=== PATIENT | female | born 2000 | race Caucasian/White ===

== ENCOUNTER 2023-12-26 20:22 | Emergency (ER) | payer BC, SELFPAY ==
[2023-12-26 20:25] VITALS: BP 140/94
--- NOTE | 2023-12-26 21:37 | EDRN ---
About 2 hours ago pt was playing basketball and another player fell on her L shoulder. Pt continued playing the game. Pt says her L shoulder hurts and she has some tingling in her L fingers. Pt did not take anything for pain or apply ice prior to
arrival in ED. Pt given ice pack.
--- NOTE | 2023-12-26 21:46 | ED.GENMED ---
History of Present Illness
General
Chief Complaint: Musculo-Skeletal Complaint
Source: patient and family (Mother and father at bedside)
Exam Limitations: none
Time Seen by Provider: 12/26/23 21:22
Nursing documentation reviewed up to this point in time: agreed with
History of Present Illness
History of Present Illness:
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 She plays for [employer]. During the game she lunged to retrieve the ball and while near lying on the floor she was struck on
her left shoulder by an opponent. She complains of immediate severe pain to her left anterior shoulder with markedly limited range of motion and intermittent paresthesia of her left hand. Left shoulder pain is much worse with attempted external
rotation and worse with abduction.
No prior history of shoulder injuries.
She denies head injury, denies headache, denies neck or back pain, denies chest pain, no cough no shortness of breath. She denies weakness.
She has not taken anything for pain.
She takes no medicines on a daily basis.
Denies risk of .
Past History
Past History
ED Past Medical History: None
ED Past Surgical History: None
Social History
Tobacco: Non-smoker
Alcohol: None
Drug: None
Personal: Single
Living: with roommate
Employment: Student ([employer])
Family History
Family History: Other (Noncontributory)
Phy Exam
Physical Exam
Physical Exam:
GENERAL: 23-year-old female appears her stated age, awake and alert, appears mildly uncomfortable related to shoulder pain. Easily communicative. Both parents are accompanying.
EYE: anicteric. The head is normocephalic, atraumatic.
NECK: Supple, nontender
ENT: oral mucosa is moist. No rhinorrhea.
CARDIAC: Regular rate and rhythm. no murmur. No chest wall tenderness.
LUNGS: Clear breath sounds bilaterally, no acute respiratory distress, no wheezes/rales/rhonchi
ABDOMEN: Soft, nondistended, without focal tenderness
NEUROLOGICAL: Alert and oriented x3, no focal neuro deficits.
SKIN: Warm and dry, normal color, skin intact. No rash.
MUSCULOSKELETAL: No C/C/E. peripheral pulses are full and equal b/l. Left shoulder has very mild soft tissue swelling as well as very mild/early ecchymosis anterior aspect of the shoulder. Moderate tenderness anterior aspect of the shoulder.
There is no tenderness to the the AC joint. No gross deformity. Exquisite tenderness to the left anterior shoulder with external rotation of the shoulder, moderate pain with abduction greater than 90 degrees. No crepitus. No tenderness to the
upper arm nor elbow nor forearm. Hand grasps are full and equal bilaterally. Radial pulses are full and equal. Sensation is grossly intact. Motor strength intact.
PSYCH: Normal and appropriate interaction.
Course
Orders/Labs/Results
Orders:
Orders
12/26/23 20:28
CR Shoulder, Trauma - Left Urgent
Comment:
Reason For Exam: Trauma
12/26/23 21:44
Ketorolac [Toradol] 60 mg IM NOW STA
12/26/23 21:45
Shoulder Immobilizer Left- Tx ONCE
Vital Signs
Initial and Last Documented VS:
Initial Vital Signs
Temp Pulse Resp BP Pulse Ox
98.5 F 108 20 140/94 98
12/26/23 20:25 12/26/23 20:25 12/26/23 20:25 12/26/23 20:25 12/26/23 20:25
Last Documented Vital Signs
Temp Pulse Resp BP Pulse Ox
98.5 F 80 14 137/78 100
12/26/23 20:25 12/26/23 22:31 12/26/23 22:31 12/26/23 22:31 12/26/23 22:31
MDM/Problems Addressed
Differential Diagnosis Includes:
Concern for left shoulder fracture, rotator cuff tear. No clinical evidence of dislocation.
Will medicate for pain with Toradol.
Left shoulder x-ray is unremarkable. No evidence of fracture nor dislocation.
Will plan for shoulder immobilizer, continue ice.
*Radiology
Radiology exam reviewed: radiology read reviewed (Left shoulder x-ray is unremarkable.)
*Pulse Oximetry
Patient hypoxic: no
*Critical Care Note
Total Time (30-74mins, 75-104mins- exclusive of procedures): Not Applicable
Update Note
Update Note:
12/26/2023 2233 PM
Patient feeling markedly improved after IM dose of Toradol.
She has been placed in a shoulder immobilizer.
Will discharge to home with prescription for ibuprofen for as needed pain.
Follow-up with capacity management specialist at school.
ED Attending Note
-
Portions of this chart may have been created with voice recognition software.� Occasional wrong word or��sound alike� substitutions may have occurred due to the inherent limitations of voice recognition software.
Discharge Plan
Departure
Patient Disposition: Home (Routine Discharge)
Date of Disposition: 12/26/23
Time of Disposition: 22:34
Patient with high blood pressure during this ER visit?: No
Condition: Good
Discharge Problem:
Sprain of left shoulder joint
Instructions: Shoulder Sprain ED, How to Use a Shoulder Sling ED
Prescriptions:
New
ibuprofen 600 mg tablet
600 mg PO QID PRN (Reason: fever or pain) Qty: 30 0RF
No Action
Lo Loestrin Fe 1 mg-10 mcg (24)/10 mcg (2) Tablet
1 tab PO DAILY
Referrals:
NONE,* [Family Provider] -
Activity Restrictions/Additional Instructions:
Follow-up with your sports book server/capacity management specialist next week for further evaluation.
Interventions
Interventions:
*Risk Screen - Suicide Last Done: 12/26/23 21:35
*General Assessment Last Done: 12/26/23 21:35
*Neglect/Abuse Screening Last Done: 12/26/23 21:35
*ED COVID-19 Vaccine History Last Done: 12/26/23 21:35
ED-Musculoskeletal Assessment Last Done: 12/26/23 21:35
Discharge Date and Time
Print Language: [id number]
[2023-12-26] MEDS: TORADOL 60 MG IM (21:56)
[2023-12-26 22:31] VITALS: BP 137/78
== END 2023-12-26 22:40 | disposition home or self-care (01) ==
LOC: EMR 20:22
PROVIDERS: EMERGENCY PHYSICIAN Emergency Medicine
DX: S43.402A Unspecified sprain of left shoulder joint, initial encounter (principal); W50.0XXA Accidental hit or strike by another person, initial encounter
CPT/HCPCS: 99284; 96372; 73030